=== PATIENT | female | born 2005 | race African-American/Black ===

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

== ENCOUNTER 2023-07-09 11:09 | Emergency (ER) | payer MEDICAID, SELFPAY ==
[2023-07-09] MEDS ORDERED: diphenhydrAMINE 50 MG/ML VIAL ONE (12:33)
[2023-07-09] MEDS ORDERED: Ondansetron PF 4 MG/2 ML Vial ONE (12:33)
[2023-07-09] MEDS ORDERED: Magnesium Sulfate/D5W 1 GM/100 ML BAG ONE (12:34)
[2023-07-09] MEDS ORDERED: Ketorolac Tromethamine 30 MG (1 mL) VIAL ONE (12:34)
[2023-07-09] MEDS ORDERED: HYDROcodone/Acetaminophen 10/325 mg Tablet ONE (14:22)
== END 2023-07-09 15:46 | disposition home or self-care (01) ==
LOC: CSHERS 11:09
DX: G43.909 Migraine, unspecified, not intractable, without status migrainosus (principal)
CPT/HCPCS: 96365; 96375; J1200; J1885; J2405; J3475

== ENCOUNTER 2024-06-26 11:13 | Emergency (ER) | payer MEDICAID, SELFPAY | END 2024-06-26 12:47 | LOC: CSHERS 11:13 | DX: Z53.21 Procedure and treatment not carried out due to patient leaving prior to being seen by health care provider (principal) ==